=== PATIENT | male | born 1995 | race Caucasian/White ===

== ENCOUNTER 2016-08-13 11:43 | Emergency (ER) | payer OTHER ==
[~2016-08-13] VITALS: Ht 172.7 cm; Wt 115.0 kg
[2016-08-13 12:07] VITALS: BP 126/91; PULSE 106; RESP 16; TEMP 98.8; O2SAT 98
[2016-08-13 12:40] LABS: AUTOMATED NEUTROPHIL # 8.5 TH/MM3 (1.8-7.7); BASOPHIL # 0.1 TH/MM3 (0-0.2); BASOPHIL % 0.5 % (0.0-2.0); EOSINOPHIL % 0.3 % (0.0-4.0); HEMATOCRIT 44.3 % (39.0-51.0); HEMO FLAGS DIFF FINAL; LYMPH % 32.1 % (9.0-44.0); LYMPHOCYTE # 4.5 TH/MM3 (1.0-4.8); MEAN CELL VOLUME 83.3 FL (80.0-100.0); MEAN CORPUSCULAR HEMOGLOBIN 28.2 PG (27.0-34.0); MEAN CORPUSCULAR HGB CONC 33.8 % (32.0-36.0); MONO % 6.5 % (0.0-8.0); NEUT % 60.6 % (16.0-70.0); PLATELET COUNT 255 TH/MM3 (150-450); RED BLOOD COUNT 5.32 MIL/MM3 (4.50-5.90); RED CELL DISTRIBUTION WIDTH 13.5 % (11.6-17.2); WHITE BLOOD COUNT 14.1 TH/MM3 (4.0-11.0)
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
[2016-08-13 13:09] LABS: ALT (GPT) 45 U/L (9-52); ANION GAP 7 MEQ/L (5-15); AST (GOT) 24 U/L (15-39); BICARBONATE 25.8 MEQ/L (21.0-32.0); BLOOD UREA NITROGEN 9 MG/DL (7-18); CHLORIDE 108 MEQ/L (98-107); GLOMERULAR FILTRATION RATE 91 ML/MIN (>89); POTASSIUM 4.1 MEQ/L (3.5-5.1); SODIUM (NA) 141 MEQ/L (136-145)
[2016-08-13 13:12] LABS: ALKALINE PHOSPHATASE 76 U/L (45-117); TOTAL BILIRUBIN ADULT 0.6 MG/DL (0.2-1.0)
[2016-08-13] MEDS ORDERED: HALOPERIDOL LACTATE 5 MG/ML AMP IM ONE (14:00)
[2016-08-13 14:29] LABS: BLOOD, URINE SMALL (NEG); GLUCOSE,URINE NEG (NEG); KETONE, URINE NEG (NEG); NITRITE,URINE NEG (NEG); PH, URINE 5.5 (5.0-8.5); SQUAMOUS EPITHELIAL CELL URINE <1 /hpf (0-5); URINE COLOR YELLOW (YELLW/STRAW)
[2016-08-13 14:30] LABS: COMMENT (UR) CULT NOT INDICATED; CULTURE IF INDICATED CULT NOT INDICATED
[2016-08-13 16:02] VITALS: BP 136/61; PULSE 65; RESP 18; O2SAT 97
[2016-08-13 17:36] LABS: AMPHETAMINE, URINE NEG (NEG); BARBITURATES, URINE NEG (NEG); COCAINE, URINE NEG (NEG)
[2016-08-13 18:15] VITALS: BP 131/68; PULSE 66; RESP 18; O2SAT 98
[2016-08-13] MEDS ORDERED: ARIP1TAB5 PO (19:03)
[2016-08-13] MEDS ORDERED: ACETAMINOPHEN 325 MG TAB PO PRN (20:45)
[2016-08-13] MEDS: ARIPiprazole 10 MG TAB PO SCH (21:00)
[2016-08-13 22:15] VITALS: BP 125/67; PULSE 87; RESP 18; O2SAT 97
[2016-08-14 01:56] VITALS: BP 124/61; PULSE 76; RESP 18; O2SAT 100
[2016-08-14 06:17] VITALS: BP 132/64; PULSE 66; RESP 20; O2SAT 99
[2016-08-14] MEDS ORDERED: ACETAMINOPHEN 325 MG TAB PO ONE (08:30)
[2016-08-14] MEDS: ARIPiprazole 10 MG TAB PO SCH (08:51)
--- NOTE | 2016-08-14 09:35 | PD ---
History of Present Illness Chief Complaint: Psychiatric Symptoms Time Seen by Provider: 09:30 Travel History International Travel<30 Days: No Contact w/Intl Traveler<30days: No Known affected area: No Legal Status Legal Status: Crude Area Act History of Present Illness: Patient well known to this physician. He is leeanne for safety and has no suicidal or homicidal ideation, plan or intent. No psychotic symptoms. His cognition is baseline. PFSH Past Medical History Medical History: Denies Significant Hx Bipolar Disorder: Yes Psychiatric History Psychiatric History Hx Psychiatric Treatment: HAS BEEN HERE MANY TIMES UNDER DIFFERENT NAMES. SEE [facility] AND [facility]. HIS LAST ADMISSION TO [facility] WAS July TO July. ACCORDING TO RECORDS, REQUIRED MANY EMERGENCY MEDICATIONS, HE WAS NOT APPROPRIATE IN GROUPS History of Inpatient Treatment: Yes Guns or firearms in home: No Social History Hx Alcohol Use: Yes Hx Tobacco Use: Yes Hx Substance Use: Yes Substance Use Type: Marijuana Hx of Substance Use Treatment: No Allergies-Medications (Allergen,Severity, Reaction): Coded Allergies: No Known Allergies (Unverified , 08/13/16) Reported Meds & Prescriptions Reported Meds & Active Scripts Active Reported Abilify (Aripiprazole) 10 Mg Tab 10 Mg PO BID Review of Systems Except as stated in HPI: all other systems reviewed are Neg Exam Alert: Yes [place]: Person, Place, Date, Situation Mood: Calm Affect: Appropriate Speech: Clear, Logical Eye Contact: Normal Memory Intact: Immediate, Recent, Remote Insight/Judgement Adequate [facility] Medical Decision Making Medical Record Reviewed: Yes Assessment/Plan Chart reviewed and case discussed with nurse. Patient well known to this physician. He is baseline and wants to go home. He is not a danger to himself or others at this time. Orders Complete Blood Count With Diff (08/13/16 12:12) Comprehensive Metabolic Panel (08/13/16 12:12) Psych Screen (08/13/16 12:12) Drug Screen, Random Urine (08/13/16 12:12) Diet Regular Basic (08/13/16 Lunch) Haloperidol Inj (Haldol Inj) (08/13/16 14:00) Restraints Non-Violent MICHELET.Q3H (08/13/16 13:54) Cath For Specimen (08/13/16 13:58) Urinalysis - C+S If Indicated (08/13/16 13:58) Acetaminophen (Tylenol) (08/13/16 20:45) Aripiprazole (Abilify) (08/13/16 21:00) Diet Regular Basic (08/14/16 Breakfast) Acetaminophen (Tylenol) (08/14/16 08:30) Results Vital Signs Date Time Temp Pulse Resp B/P Pulse Ox O2 Delivery O2 Flow Rate FiO2 08/14/16 06:17 66 20 132/64 99 Room Air 08/14/16 01:56 76 18 124/61 100 Room Air 08/13/16 22:15 87 18 125/67 97 Room Air 08/13/16 18:15 66 18 131/68 98 Room Air 08/13/16 16:02 65 18 136/61 97 Room Air 08/13/16 12:07 98.8 106 16 126/91 98 Laboratory Tests Test 08/13/16 08/13/16 12:20 14:08 White Blood Count 14.1 Red Blood Count 5.32 Hemoglobin 15.0 Hematocrit 44.3 Mean Corpuscular Volume 83.3 Mean Corpuscular Hemoglobin 28.2 Mean Corpuscular Hemoglobin 33.8 Concent Red Cell Distribution Width 13.5 Platelet Count 255 Mean Platelet Volume 9.1 Neutrophils (%) (Auto) 60.6 Lymphocytes (%) (Auto) 32.1 Monocytes (%) (Auto) 6.5 Eosinophils (%) (Auto) 0.3 Basophils (%) (Auto) 0.5 Neutrophils # (Auto) 8.5 Lymphocytes # (Auto) 4.5 Monocytes # (Auto) 0.9 Eosinophils # (Auto) 0.0 Basophils # (Auto) 0.1 CBC Comment DIFF FINAL Differential Comment Sodium Level 141 Potassium Level 4.1 Chloride Level 108 Carbon Dioxide Level 25.8 Anion Gap 7 Blood Urea Nitrogen 9 Creatinine 1.04 Estimat Glomerular Filtration 91 Rate Random Glucose 96 Calcium Level 10.1 Total Bilirubin 0.6 Aspartate Amino Transf 24 (AST/SGOT) Alanine Aminotransferase 45 (ALT/SGPT) Alkaline Phosphatase 76 Total Protein 7.6 Albumin 4.3 Urine Color YELLOW Urine Turbidity CLEAR Urine pH 5.5 Urine Specific [place] 1.026 Urine Protein TRACE Urine Glucose (UA) NEG Urine Ketones NEG Urine Occult Blood SMALL Urine Nitrite NEG Urine Bilirubin NEG Urine Urobilinogen 2.0 Urine Leukocyte Esterase NEG Urine RBC 2 Urine WBC 1 Urine Squamous Epithelial <1 Cells Microscopic Urinalysis Comment CULT NOT INDICATED Urine Opiates Screen NEG Urine Barbiturates Screen NEG Urine Amphetamines Screen NEG Urine Benzodiazepines Screen NEG Urine Cocaine Screen NEG Urine Cannabinoids Screen POS Diagnosis Primary Impression: Schizoaffective disorder Additional Impression: Adjustment disorder with mixed disturbance of emotions and conduct Departure Forms: Tests/Procedures Patient Instructions: General Instructions, Schizoaffective Disorder (ED) Additional Instructions: GO TO [facility] FOR MEDICATION MANAGEMENT Disposition: 01 DISCHARGE HOME Condition: Stable Problem Qualifiers True Story MD Aug 14, 2016 09:35
== END 2016-08-14 09:43 | disposition home or self-care (01) ==
LOC: NEPD 11:43 → NEPJ 08-14 09:43
DX: F25.9 Schizoaffective disorder, unspecified (principal); F43.25 Adjustment disorder with mixed disturbance of emotions and conduct; Z87.891 Personal history of nicotine dependence
CPT/HCPCS: 80053; 80307; 81001; 85025; 96372; 99285; J1630; P9612